=== PATIENT | male | born 1980 | race Caucasian/White ===

== ENCOUNTER → 2021-01-25 | Outpatient (CLI) | payer SELFPAY ==
--- NOTE | 2021-01-25 18:48 | Diagnostic Imaging Report ---
INDICATION: Hypercholesterolemia. Noncontrasted limited chest CT performed for the purpose of calcium scoring. Small focal area of calcification in the proximal left circumflex artery is present reflective of the only detectable calcification with an Agatston score equivalent of only 24.5. This is classified as mild calcification and would place the coronary age at 50-54. The visualized lungs showed no mass or infiltrate. No effusion or pneumothorax. There is no adenopathy. The thoracic aorta showed no calcifications or visualized aneurysm. There is few subcentimeter benign calcified subcarinal mediastinal lymph nodes owing to old granulomatous disease. No acute or suspect chest wall abnormality. IMPRESSION: A very mild calcified plaque isolated to the proximal circumflex. No other significant finding. Dictated by: Dictated on workstation # [id number]
== END ==
LOC: RAD FS 12:58
PROVIDERS: ATTEND Family Medicine
DX: E78.00 Pure hypercholesterolemia, unspecified (principal); E78.2 Mixed hyperlipidemia
CPT/HCPCS: 75571